=== PATIENT | female | born 1985 | race Caucasian/White ===

== ENCOUNTER 2017-06-28 09:23 | Emergency (ER) | payer OTHER ==
[~2017-06-28 09:23] MED LIST: ANAPROX DS550 MG PO; BIAXIN500 MG PO; COLACE100 MG PO; CORTISPORIN 1%-10 M1 OT; FERROUS SULFAT325 MG PO; MEDROL DOSEPAK4 MG PO; MOTRIN800 MG PO; NKHM; PERCOCET 325 MG1 TA2 PO; PHENERGAN25 M1 PO; TAMIFLU 75MG CA75 MG PO; TRIMOX500 MG PO; Tessalon Perle100 MG PO
[2017-06-28 09:44] LABS: BASO % 0.6 % (0.0-1.0); EOS # 0.1 10*3/uL (0.0-0.4); EOS % 1.1 % (1.0-4.0); HEMATOCRIT 40.3 % (37.0-47.0); HEMOGLOBIN 13.6 g/dl (12.0-16.0); LYMPH # 2.1 10*3/uL (1.3-4.4); LYMPH % 34.4 % (27.0-41.0); MEAN CELL VOLUME 86.7 fl (81.0-99.0); MEAN CORPUSCULAR HGB 29.2 pg (27.0-31.0); MEAN CORPUSCULAR HGB CONC 33.7 g/dl (33.0-37.0); MEAN PLATELET VOLUME 10.8 fl (9.6-12.3); MONO # 0.5 10*3/uL (0.1-1.0); MONO % 7.8 % (3.0-9.0); NEUT # 3.4 10*3/uL (2.3-7.9); NEUT % 55.9 % (47.0-73.0); PLATELET COUNT AUTOMATED 203 10*3/uL (130-400); RED BLOOD COUNT 4.65 10*6/uL (4.10-5.10); WHITE BLOOD COUNT 6.2 10*3/uL (4.8-10.8)
[2017-06-28 09:53] LABS: ACT PARTIAL THROMBO TIME 23.8 SECONDS (20.8-31.5)
[2017-06-28 10:00] LABS: ALBUMIN 3.7 gm/dl (3.1-4.5); ALKALINE PHOSPHATASE 41 U/L (45-117); BUN 14 mg/dl (7-24); CHLORIDE 108 mmol/L (98-107); CREATININE 0.84 mg/dL (0.55-1.02); POTASSIUM 3.8 mmol/L (3.5-5.1); SGOT/AST 11 IU/L (3-35); SGPT/ALT 14 U/L (12-78); SODIUM 144 mmol/L (136-145); TOTAL PROTEIN 7.1 gm/dL (6.4-8.2)
[2017-06-28 10:01] LABS: TROPONIN I < 0.015 ng/ml (<0.045)
== END 2017-06-28 11:13 | disposition home or self-care (01) ==
LOC: ED 09:23
PROVIDERS: Emergency Medicine
DX: R07.89 Other chest pain (principal); R10.13 Epigastric pain; Z79.899 Other long term (current) drug therapy

== ENCOUNTER 2018-09-09 21:37 | Emergency (ER) | payer OTHER ==
[~2018-09-09] VITALS: Ht 170.1 cm; Wt 95.3 kg
[~2018-09-09 21:37] MED LIST changes: +AMINOPHYLLIN200 MG PO
[2018-09-09] MEDS ORDERED: CIPRODEX 0.3%-7.5 ML OT (22:02)
[2018-09-09] MEDS ORDERED: CEFUROXIME AXE500 MG PO (22:02)
[2018-09-09] MEDS ORDERED: CORTISPORIN SUS10 ML OT (22:02)
== END 2018-09-09 22:23 | disposition home or self-care (01) ==
LOC: ED 21:37
DX: O26.891 Other specified pregnancy related conditions, first trimester (principal); H60.92 Unspecified otitis externa, left ear; Z3A.08 8 weeks gestation of pregnancy; Z79.2 Long term (current) use of antibiotics; Z79.899 Other long term (current) drug therapy

== ENCOUNTER → 2020-08-20 | Outpatient (CLI) | payer OTHER ==
[~2020-08-20] MED LIST changes: +CEFUROXIME AXE500 MG PO; +CIPRODEX 0.3%-7.5 ML OT; +CORTISPORIN SUS10 ML OT
[2020-08-20 10:40] LABS: HEMATOCRIT 41.5 % (37.0-47.0); MEAN CELL VOLUME 89.1 fl (81.0-99.0); MEAN CORPUSCULAR HGB CONC 32.5 g/dl (33.0-37.0); MEAN PLATELET VOLUME 10.8 fl (9.6-12.3); RED BLOOD COUNT 4.66 10*6/uL (4.10-5.10); RED CELL DISTRI WIDTH 12.4 % (0-14.5); WHITE BLOOD COUNT 7.1 10*3/uL (4.8-10.8)
[2020-08-20 11:17] LABS: ALBUMIN 3.6 gm/dl (3.1-4.5); ALKALINE PHOSPHATASE 48 U/L (45-117); BUN 12 mg/dl (7-24); CHLORIDE 111 mmol/L (98-107); CHOLESTEROL 126 mg/dL (<200); CREATININE 0.82 mg/dL (0.55-1.02); HDL CHOLESTEROL 58 mg/dl (40-60); LDL CHOLESTEROL 58 mg/dL (9-159); POTASSIUM 3.6 mmol/L (3.5-5.1); SGOT/AST 9 IU/L (3-35); SGPT/ALT 22 U/L (12-78); SODIUM 145 mmol/L (136-145); TRIGLYCERIDES 52 mg/dl (<150); VLDL CHOLESTEROL 10 mg/dL (6-40)
== END | disposition home or self-care (01) ==
LOC: LAB 10:14
PROVIDERS: ATTEND Nurse Practitioner Family
DX: Z13.220 Encounter for screening for lipoid disorders (principal); B37.9 Candidiasis, unspecified

== ENCOUNTER 2020-10-11 23:05 | Emergency (ER) | payer OTHER ==
[2020-10-12 00:23] LABS: BILIRUBIN Negative (Negative); BLOOD 3+ (Negative); CLARITY Cloudy (Clear); GLUCOSE Negative (Negative); KETONE Negative (Negative); LEUKO ESTERASE 1+ (Negative); NITRITE Negative (Negative); PH 6.5 (4.5-8.0)
[2020-10-12 00:44] LABS: BACTERIA 3+; COLOR Red (Yellow); RBC TNTC rbc/hpf (0-2)
[2020-10-12] MEDS ORDERED: CEPHALEXIN500 M1 PO (01:20)
[2020-10-12] MEDS ORDERED: PYRIDIUM200 M1 PO (01:20)
== END 2020-10-12 01:55 | disposition home or self-care (01) ==
LOC: ED 23:05
PROVIDERS: Emergency Medicine
DX: N39.0 Urinary tract infection, site not specified (principal); Z92.0 Personal history of contraception; Z79.2 Long term (current) use of antibiotics; Z79.899 Other long term (current) drug therapy

== ENCOUNTER → 2023-11-06 | Day surgery (SDC) | payer OTHER ==
[~2023-11-06] VITALS: Ht 170.1 cm; Wt 83.9 kg
[~2023-11-06] MED LIST changes: +ACETAMINOPHEN 100 ML IV ONE; +CEPHALEXIN500 M1 PO; +GLYCOPYRROLATE IN WATER/PF 0.4 MG/2 ML SYRINGE IV ONE; +Lactated Ringer's Solution 1,000 ML IV ONE; +Midazolam Hydrochloride 2 MG/2 ML VIAL IV ONE; +Neostigmine Methylsulfate 3 MG/3 ML SYRINGE IV ONE; +Ondansetron Hydrochloride 4 MG/2 ML VIAL IV ONE; +PYRIDIUM200 M1 PO; +ROCURONIUM BROMIDE 50 MG/5 ML SYRINGE IV ONE; +SEVOFLURANE 250 ML BOT INH ONE; +TOPAMAX100 M1 PO; +WELLBUTRIN XL150 MG PO; +fentaNYL CITRATE 100 MCG/2 ML VIAL IV ONE
[2023-11-06 07:30] VITALS: BP 99/52
[2023-11-06 10:23] VITALS: BP 107/32
[2023-11-06 10:38] VITALS: BP 97/50
[2023-11-06 10:53] VITALS: BP 101/59
[2023-11-06 11:08] VITALS: BP 97/50
[2023-11-06 11:23] VITALS: BP 93/57
== END | disposition home or self-care (01) ==
LOC: SDC 11-02 12:30
PROVIDERS: ATTEND Obstetrics & Gynecology
DX: Z33.2 Encounter for elective termination of pregnancy (principal); G43.909 Migraine, unspecified, not intractable, without status migrainosus; F41.9 Anxiety disorder, unspecified; F32.A Depression, unspecified; F17.210 Nicotine dependence, cigarettes, uncomplicated; Z87.440 Personal history of urinary (tract) infections; Z98.891 History of uterine scar from previous surgery; Z86.73 Personal history of transient ischemic attack (TIA), and cerebral infarction without residual deficits; Z98.890 Other specified postprocedural states; Z79.899 Other long term (current) drug therapy; Z80.3 Family history of malignant neoplasm of breast